=== PATIENT | female | born 1945 | race Caucasian/White ===

== ENCOUNTER 2025-04-26 12:42 | Emergency (ER) | payer MEDICARE, MEDICAID ==
[~2025-04-26] VITALS: Ht 167.6 cm; Wt 71.2 kg
[2025-04-26 12:44] VITALS: BP 144/67; PULSE 94; RESP 18; TEMP 96.9; O2SAT 95
--- NOTE | 2025-04-26 12:55 | ELECTROCARDIOGRAPH REPORT ---
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 Reading MD: Measurements Intervals [place] Rate: 93 P: 57 IA: 159 QRS: 87 QRSD: 86 T: 52 QT: 357 QTc: 445 Interpretive Statements Sinus rhythm Probable left atrial enlargement Borderline right axis deviation Low voltage, precordial leads Please click the below link to view image of tracing.
--- NOTE | 2025-04-26 12:58 | Physician Documentation ---
History of Present Illness ~ General Chief Complaint: Multiple Medical Complaints Stated Complaint: LOWER L BACK PAIN History of Present Illness Initial Comments Patient is a 80-year-old female that presents to the emergency department for complaints of mild chest pain pain that lasts for 20-30 minutes at a time patient reports that has been going on for approximately a week, she also reports increased shortness of breath although she has emphysema at baseline. Patient reports she has lower left back pain that radiates around to her left hip. Reports that she does currently smoke. She uses an albuterol inhaler at home as needed. She has not tried any Tylenol or ibuprofen for her discomfort. Patient denies any current chest pain tightness nausea vomiting lightheadedness. Patient reports edema to lower extremities bilaterally. Medication Reconciliation Allergies: Coded Allergies: No Allergy Information Available (Unverified , 04/26/25) Review of Systems ROS As stated above in the HPI, otherwise all systems are reviewed and negative. Physical Exam Physical Exam Vital Signs: Temperature: 96.9, Source: Temporal, Heart Rate: 94, Respiratory Rate: 18, BP: 144/67, Pulse Oximetry: 95, Weight: 71.200 Physical Exam VITALS: Reviewed and as above. GENERAL: Alert, no apparent distress. HEENT: Normocephalic, atraumatic, PERRL, EOMI, dry mucosa, no erythema RESPIRATORY: Lungs clear, normal breath sounds, no respiratory distress. CHEST: No accessory muscle use, no retractions, diminished breath sounds to the lower bases bilaterally. CV: Regular rate, rhythm, no edema, no murmur, No: JVD GI: Soft, non-tender, bowels sounds present, no rebound, guarding, or rigidity BACK: No CVA tenderness, or swelling MUSCULOSKELETAL No deformities, no edema SKIN: Warm and dry, no rash NEURO: Oriented x4, No motor or sensory deficit PSYCH: Normal mood and affect, no agitation Progress Results/Orders Results/Orders Orders - HIMANSHU VERMA Cbc/Diff (04/26/25 18:00) CMP (04/26/25 18:00) PBNP (04/26/25 18:00) Departure Referrals: NO PRIMARY CARE PROVIDER (PCP) HIMANSHU VERMA Apr 26, 2025 12:58
== END 2025-04-26 19:32 | disposition left against medical advice (07) ==
LOC: ER 12:43
DX: M54.50 Low back pain, unspecified (principal); R06.02 Shortness of breath; R07.9 Chest pain, unspecified
CPT/HCPCS: 93005; 99283